=== PATIENT | female | born 1940 | race African-American/Black ===

== ENCOUNTER 2018-02-09 15:10 | Emergency (ER) | payer MEDICARE, OTHER ==
[~2018-02-09] VITALS: Ht 152.4 cm; Wt 59.9 kg
[2018-02-09] MEDS ORDERED: NKM (15:23)
[2018-02-09 15:38] VITALS: BP 125/67
--- NOTE | 2018-02-09 16:19 | Diagnostic Imaging Report ---
EXAM: XR Right Elbow Complete, 3 or More Views CLINICAL HISTORY: FALL TECHNIQUE: Frontal, lateral and oblique views of the right elbow. COMPARISON: No relevant prior studies available. FINDINGS: Bones/joints: Unremarkable. No visible displaced fracture. No dislocation. No osseous erosions. Visualized joint spaces appear unremarkable. Soft tissues: Unremarkable. No radiodense foreign bodies. No soft tissue gas lucencies. IMPRESSION: Unremarkable right elbow x-rays.
--- NOTE | 2018-02-09 16:35 | Emergency Room Report ---
History of Present Illness General Chief Complaint: Upper Extremity Injury Source: Patient (Janna Penningtonsophia P.A.) Present Illness HPI 77 y.o. F, no sig pmhx, here c/o 2 wks of right elbow pain post fall. reports pain localized to right elbow, 5/10, aching, intermittent, no radiation, no tingling/numbness, minimal swelling, no bruising. pt did not take any pain meds. pt is right handed and reports having pain in right elbow when flexing elbow, but denies pain with extention, lateral and medial movement of elbow. pt denies using ICE pack to the selena. reports over using her right arm. also reports hitting right hip and right knee to the ground post fall 2 wks ago but denies pain in knee or hip. denies head trauma and denies loc post fall. denies cp, sob, palpitation, dizziness. (Harish Pennington P.A.) Allergies: Uncoded Allergies: PENICILLINS (Allergy, Unknown, 02/09/18) SUGAR (Allergy, Unknown, 02/09/18) Patient History Now: No Immunizations: UTD Reviewed Nursing Documentation: PMH: Agreed; PSxH: Agreed (Harish Pennington P.A.) Nursing Documentation-PMH Past Medical History: No Stated History (Harish Pennington P.A.) Review of Systems All Other Systems: negative except mentioned in HPI (Harish Pennington P.A.) Physical Exam Vital Signs Date Time Temp Pulse Resp B/P (MAP) Pulse Ox O2 Delivery O2 Flow Rate FiO2 02/09/18 15:18 98.4 85 16 125/67 96 Room Air 98.4 Sp02 EP Interpretation: reviewed General Appearance: normal inspection, well appearing, no apparent distress, alert, GCS 15 Head: normocephalic Eyes: bilateral eye normal inspection, bilateral eye PERRL ENT: normal ENT inspection, hearing grossly normal Neck: normal inspection, full range of motion, supple Respiratory: normal inspection, chest non-tender, lungs clear, normal breath sounds, no rhonchi, no respiratory distress, no retraction, no accessory muscle use, respiratory distress Cardiovascular #1: normal inspection, normal peripheral pulses, regular rate, rhythm, no edema, no gallop, no murmur, no rub, normal capillary refill Cardiovascular #2: 2+ radial (R), 2+ radial (L) Gastrointestinal: normal inspection, normal bowel sounds, non tender, soft Rectal: deferred Genitourinary: deferred Musculoskeletal: decreased range of motion, inflammation - swelling of right elbow over olecranon, not warm to touch no sign of infx Neurologic: normal inspection, alert, oriented x3, responsive, attache III-XII nml as tested Skin: normal inspection, normal color, no rash, warm/dry Lymphatic: normal inspection, no adenopathy (Harish Pennington P.A.) Medical Decision Making PA Attestation all dx, PE, orders, tx plans reviewed and approved by my supervising physcian Dr. Collazo. Reaction to Intervention: Improved (Harish Pennington P.A.) Diagnostic Impression: Primary Impression: Bursitis of elbow Additional Impression: Injury of upper extremity ER Course 77 y.o. F, no sig pmhx, here c/o 2 wks of right elbow pain post fall. reports pain localized to right elbow, 5/10, aching, intermittent, no radiation, no tingling/numbness, minimal swelling, no bruising. pt did not take any pain meds. pt is right handed and reports having pain in right elbow when flexing elbow, but denies pain with extention, lateral and medial movement of elbow. pt denies using ICE pack to the selena. reports over using her right arm. also reports hitting right hip and right knee to the ground post fall 2 wks ago but denies pain in knee or hip. denies head trauma and denies loc post fall. denies cp, sob, palpitation, dizziness. Ddx considered but are not limited to elbow bursitis, fx of elbow, neurapathy Vital signs: are WNL, pt. is afebrile H&PE are most consistent with bursitis elbow ORDERS: X ray of right elbow 2 views, Naproxen 500mg bid to go home with ED INTERVENTIONS: None required at this time. DISCHARGE: At this time pt. is stable for d/c to home. Will provide printed patient care instructions, and any necessary prescriptions. Care plan and follow up instructions have been discussed with the patient prior to discharge. (Sahelimoghavami,Nahal P.A.) Other X-Ray Diagnostic Results Other X-Ray Diagnostic Results : X-Ray ordered: right elbow # of Views/Limited Vs Complete: 2 View Indication: Pain EP Interpretation: Yes PA Xray: Interpretation reviewed, by supervising MD, and agrees with findings. Interpretation: no dislocation, no soft tissue swelling, no fractures Impression: No acute disease PA Scribe Text harish jean-baptiste PA-C (Janna Penningtonal P.A.) Other X-Ray Diagnostic Results : Electronically Signed by: Garo documentation reviewed by me and is accurate, Marek Collazo MD. (Marek Collazo M.D.) Last Vital Signs Date Time Temp Pulse Resp B/P (MAP) Pulse Ox O2 Delivery O2 Flow Rate FiO2 02/09/18 15:38 98.4 85 16 125/67 96 Room Air 98.4 Status: improved (Gorge,Nahal P.A.) Disposition: HOME, SELF-CARE Condition: Stable Scripts Naproxen (Naproxen) 250 Mg Tablet 500 MG PO EVERY 12 HOURS for 30 Days, #60 TAB Prov: Harish Pennington P.A. 02/09/18 Referrals: NOT CHOSEN IPA/,REFERRING (PCP) Patient Instructions: Elbow Bursitis Additional Instructions: NSAID should be taken for symptomatic relief. avoid over using right elbow. Janna Salesal P.A. February 09, 2018 16:35 Marek Collazo M.D. February 10, 2018 02:39
[2018-02-09] MEDS ORDERED: NAPROXEN250 M1 PO (16:36)
[2018-02-09 16:47] VITALS: BP 116/68
== END 2018-02-09 17:00 | disposition home or self-care (01) ==
LOC: EMR 16:24
DX: M70.31 Other bursitis of elbow, right elbow (principal); S59.901A Unspecified injury of right elbow, initial encounter; Z88.0 Allergy status to penicillin; Z91.018 Allergy to other foods; W18.30XA Fall on same level, unspecified, initial encounter; Y92.9 Unspecified place or not applicable
CPT/HCPCS: 99283